=== PATIENT | female | born 1990 | race Caucasian/White ===

== ENCOUNTER 2017-07-26 12:47 | Emergency (ER) | payer MEDICAID, OTHER ==
[~2017-07-26 12:47] MED LIST: CHLO.12%30 SSP; NAPR550 PO; PENI500T PO
[2017-07-26 12:48] VITALS: BP 141/79; PULSE 73; RESP 18; TEMP 98.2; O2SAT 98
--- NOTE | 2017-07-26 14:30 | PD ---
HPI Chief Complaint: Abdominal Pain Time Seen by Provider: 13:00 Travel History International Travel<30 days: No Contact w/Intl Traveler<30days: No Traveled to known affect area: No History of Present Illness HPI Pt is a 27-year-old female presented to him or trauma for evaluation of bilateral back pain that radiates around to her upper abdomen and ribs. She states it started week ago, onset was gradual, there were no alleviating or exacerbating factors. She denies any shortness of breath. She states it is getting worse. She further denies any nausea, vomiting, fever, chills, dysuria. 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 quit at beginning of ) Substance Use: No Allergies-Medications (Allergen,Severity, Reaction): Coded Allergies: No Known Allergies (Verified , 01/04/14) Reported Meds & Prescriptions Reported Meds & Active Scripts Active Peridex Oral Rinse (Chlorhexidine Gluconate) 0.12 % Sofia 15 Ml SSP Q6 10 Days Pen Vk (Penicillin V Potassium) 500 Mg Tab 500 Mg PO Q6 10 Days Anaprox Ds (Naproxen Sodium) 550 Mg Tab 550 Mg PO BID Review of Systems Except as stated in HPI: all other systems reviewed are Neg Respiratory: Positive: Pleuritic Pain Gastrointestinal: Positive: Abdominal Pain Physical Exam Narrative GENERAL: Well developed, well-nourished, alert female. Presenting in no acute distress. SKIN: Warm and dry. HEAD: Normocephalic. EYES: No scleral icterus. No injection or drainage. NECK: Supple, trachea midline. No JVD or lymphadenopathy. CARDIOVASCULAR: Regular rate RESPIRATORY: No accessory muscle use. Data Data Last Documented VS Vital Signs Date Time Temp Pulse Resp B/P (MAP) Pulse Ox O2 Delivery O2 Flow Rate FiO2 07/26/17 12:48 98.2 73 18 141/79 (99) 98 Orders Orders Ed Urine Pregnancytest Poc (07/26/17 13:02) MDM Medical Decision Making Medical Screen Exam Complete: Yes Emergency Medical Condition: Yes Interpretation(s) Vital Signs Date Time Temp Pulse Resp B/P (MAP) Pulse Ox O2 Delivery O2 Flow Rate FiO2 1/22/18 12:48 98.2 73 18 141/79 (99 98 Differential Diagnosis Pleurisy versus gastritis versus strain versus muscle spasm versus other Narrative Course Patient is a 27-year-old female presenting to the emergency department for evaluation of back pain that radiates to her abdomen. Patient's vital signs are stable. She is well-appearing and in no acute distress. Patient was called to be bedded, she was no longer in the emergency department. Patient left AGAINST MEDICAL ADVICE. Diagnosis Primary Impression: Left against medical advice Sirena Rausch Jul 26, 2017 14:30
== END 2017-07-26 14:30 | disposition left against medical advice (07) ==
LOC: NED 12:47
DX: M54.9 Dorsalgia, unspecified (principal); R10.9 Unspecified abdominal pain
CPT/HCPCS: 99281